=== PATIENT | female | born 1930 | race Caucasian/White ===

== ENCOUNTER 2016-09-22 09:31 | Inpatient (IN) | payer OTHER ==
[2016-09-10 12:44] LABS: BASOPHILS 0.2 %; BASOPHILS ABSOLUTE 0.01 10/3/uL (0.0-0.16); EOSINOPHILS 0.3 %; EOSINOPHILS ABSOLUTE 0.02 10/3/uL (0.0-0.53); HEMATOCRIT 37.6 % (36.0-48.0); IMMATURE GRANULOCYTES 0.3 %; IMMATURE GRANULOCYTES ABSOLUTE 0.02 10/3/uL (0.0-0.11); LYMPHOCYTES 18.5 %; LYMPHOCYTES ABSOLUTE 1.17 10/3/uL (0.67-4.30); MEAN CORPUS HGB CONC 34.6 g/dL (32.0-36.0); MEAN CORPUSCULAR HEMOGLOB 31.9 pg (26.0-34.0); MEAN CORPUSCULAR VOLUME 92.2 fL (80-100); MEAN PLATELET VOLUME 8.4 fL (9.2-13.0); MONOCYTES 8.4 %; MONOCYTES ABSOLUTE 0.53 10/3/uL (0.21-1.20); NEUTROPHILS 72.3 %; NEUTROPHILS ABSOLUTE 4.56 10/3/uL (2.02-8.40); PLATELET COUNT 283 10/3/uL (150-400); RBC DISTRIBUTION WIDTH 13.2 % (12.0-16.0); RED CELL COUNT 4.08 10/6/uL (4.0-5.6)
[2016-09-10 12:45] LABS: MANUAL DIFF NO %; WHITE BLOOD CELLS 6.3 10/3/uL (4.5-10.5)
[2016-09-10 12:47] LABS: INTERNATIONAL NORMAL RATI 1.6 UNITS (-); PARTIAL THROMBO TIME 30.6 SEC (22.5-37.2)
[2016-09-10 12:49] LABS: PROTIME (NOT ORD) 18.6 SEC (12.0-14.5)
[2016-09-10 13:01] LABS: ALBUMIN 3.5 G/DL (3.5-5.0); ALKALINE PHOSPHATASE 93 U/L (45-117); BUN (BLOOD UREA NITROGEN) 18 MG/DL (6-23); CALCIUM, SERUM 9.8 MG/DL (8.5-10.4); CHLORIDE, SERUM 95 MMOL/L (96-112); CO2 (CARBON DIOXIDE) 30 MMOL/L (24-34); CREATININE 0.78 MG/DL (0.55-1.02); GFR AFRICAN AMERICAN 81 ML/MIN (>=60); GFR NON AFRICAN AMERICAN 70 ML/MIN (>=60); GLOBULIN 3.5 G/DL (2.5-4.1); GLUCOSE, SERUM 114 MG/DL (60-99); POTASSIUM, SERUM 3.1 MMOL/L (3.5-5.3); SGOT(AST) 17 U/L (5-40); SGPT(ALT) 17 U/L (5-65); SODIUM, SERUM 137 MMOL/L (135-148)
[2016-09-10 13:02] LABS: ASCORBIC ACID (UR NOT ORDER) NEG (NEG); BILIRUBIN, URINE NEGATIVE (NEG); KETONE, URINE NEGATIVE (NEG); LEUKOCYTE ESTERASE(NOT OR MOD (NEG); WBC (NOT ORDERED) (RFLEX) 85 (0-5)
--- NOTE | ~2016-09-22 | CN ---
Consultation Report [facility] [address] [place]. [address] NAME: STEPHEN YODER : 32 STATUS : ADM IN PAT#: [id number] AGE: 86 ADM/REG DATE : 09/22/16 MR#: [id number] REPORT SERV DATE: 09/23/16 DICTATED BY: BRIAN WILLIAM DATE: 09/23/16 REPORT STATUS : Draft TRANSCRIBED BY: MODL DATE: 09/23/16 CONSULTATION DATE OF CONSULTATION: 09/23/2016 Reason for patient being admitted to the hospital is for left hip total hip arthroplasty for advanced osteoarthritis and degenerative left hip. REASON FOR CONSULT: Medical management in this patient. The patient was examined at bedside and when I examined the patient to get history and do the physical on the patient, she was already up from the bed and sitting on her rocking chair. At this time, the patient denies any symptoms whatsoever, other than the fact that she is unable to urinate and they have had to catheterize her. She also is concerned that she has not had a bowel movement for two days. Other than that, she feels well and she states that the pain in the left hip is bearable. She denies any headaches, blurry vision, trouble swallowing, chest pain, shortness of breath, cough, fever, nausea, vomiting, abdominal pain, diarrhea, dysuria, hematuria. As mentioned above, the patient does have a problem with urinating postoperatively. The patient has been started on IV fluids and is on IV normal saline at 150 mL an hour per orthopedic surgeon, Dr. Soares. REVIEW OF SYSTEMS: As above. 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 1. Neuropathy in feet, for which she takes Neurontin. 2. History of DVT in the left leg and a history of PE more than thirty years ago according to the sons. 3. History of breast cancer that was treated about thirty years ago. 4. First-degree heart block. 5. Bundle-branch block of the heart. At this time with no history of metallic heart valve or cardiac arrhythmia, I am not sure why the patient has been placed on Coumadin in the last just five years. It could be because of the fact that the patient has had DVT and PE more than three decades ago and the patient had a CVA about five years ago that she has been on Coumadin, but the Coumadin is managed by her primary care physician at this time. PAST SURGICAL HISTORY: As above. SOCIAL HISTORY: The patient does not smoke or drink or do any drugs. At this time, the Consultation Report [facility] [id number] [place]. [address] NAME: STEPHEN YODER : 32 STATUS : ADM IN PAT#: [id number] AGE: 86 ADM/REG DATE : 09/22/16 MR#: [id number] REPORT SERV DATE: 09/23/16 DICTATED BY: BRIAN WILLIAM DATE: 09/23/16 REPORT STATUS : Draft TRANSCRIBED BY: SUE DATE: 09/23/16 patient lives alone in her house. Her daughters live close by. Her sons are in the room with the patient, but they do not live in town. FAMILY HISTORY: Positive for breast cancer in family. ALLERGIES: INCLUDE THE FOLLOWING. THE PATIENT IS ALLERGIC TO PENICILLIN. THE PATIENT IS ALSO ALLERGIC TO OXYCODONE. HOME MEDICATIONS: Cardizem CD 120 mg p.o. daily, Zocor 40 mg p.o. daily, Tenormin 50 mg p.o. at bedtime, Neurontin 300 mg p.o. daily, HCTZ 25 mg p.o. daily, losartan 100 mg p.o. daily, MiraLAX powder, and Jantoven 2 mg daily for two days, and then third day as prescribed by PCP according to the patient. PHYSICAL EXAMINATION: GENERAL: The patient is alert, oriented, is able to give her history herself and appears quite comfortable, sitting on the rocking chair. Her skin and mucous membranes appear moist now. VITAL SIGNS: Show that her blood pressure has come back up and is 89/54, oxygen saturation is 93% on room air. The patient has a temperature of 99.3, pulse is 69 per minute. NECK: There is no JVD or thyromegaly. HEENT: There is no facial droop. CARDIOVASCULAR SYSTEM: S1, S2 appreciated. Sinus rhythm. There is a murmur noted and it is systolic murmur that is noted in almost all areas of the precordium. Rhythm, however, is regular. RESPIRATORY SYSTEM: Clear lungs. No rales or rhonchi noted. ABDOMEN: Soft, nontender. Bowel sounds are appreciated. No masses. No hepatosplenomegaly noted. EXTREMITIES: There is no pedal edema in both lower extremities. NEUROLOGICAL: No deficits. PSYCHIATRIC: Normal affect. 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 LABORATORIES: Her labs as of today show sodium of 134, potassium of 3, chloride of 96, BUN 13, creatinine 0.7. WBC count of 6.3, hemoglobin 9.8, hematocrit of 28. INR is 1.3. ASSESSMENT: My assessment in this patient is hypertension is fairly controlled. Continue current medications. However, we will hold one of the medications, probably atenolol if her systolic blood pressure drops down to less than 90. At this time, we will continue diltiazem CD 120 mg p.o. at bedtime, losartan 100 mg p.o. daily, HCTZ 25 mg p.o. daily. We will continue simvastatin 40 mg p.o. at bedtime, multivitamins, and minerals, polyethylene glycol, gabapentin 300 mg once a day, iron tablets for supplementation, famotidine. We will leave anticoagulation up to orthopedic surgeon. We will replace potassium per electrolyte protocol and follow this patient with you. I appreciate the Consultation Report [address] [place]. [address] NAME: STEPHEN YODER : 32 STATUS : ADM IN [facility]#: [id number] AGE: 86 ADM/REG DATE : 09/22/16 MR#: [id number] REPORT SERV DATE: 09/23/16 DICTATED BY: BRIAN WILLIAM DATE: 09/23/16 REPORT STATUS : Draft TRANSCRIBED BY: MODL DATE: 09/23/16 consult. We will follow the patient. OBDULIO/SUE Brina William M.D. / [id number] CC: Federico Soares M.D.
--- NOTE | ~2016-09-22 | DS ---
Discharge Summary [facility] [address] [place]. [address] NAME: STEPHEN YODER : 32 STATUS : DIS IN PAT#: [id number] AGE: 86 ADM/REG DATE : 09/22/16 MR#: [id number] REPORT SERV DATE: 11/04/16 DICTATED BY: TIEN SOARES DATE: 11/03/16 REPORT STATUS : Draft TRANSCRIBED BY: SUE DATE: 11/03/16 Data Collection from hospitalization DISCHARGE DIAGNOSES: 1. Hip arthritis with femoral head collapse. 2. Hypertension. 3. History of breast cancer. 4. Hypercholesterolemia. 5. History of stroke. 6. Peripheral neuropathy. CONSULTATIONS: Patricia Davison M.D. PROCEDURES PERFORMED: Left hip arthroplasty on 09/22/2016. PATHOLOGY: ( ). MEDICATIONS: Cardizem CD 120 mg at bedtime, Colace 100 mg twice a day, Pepcid 20 mg at bedtime, ferrous sulfate 300 mg with breakfast and supper, Neurontin 300 mg at bedtime, Cozaar 100 mg at bedtime, Theragran tablets one tablet with breakfast, MiraLAX powder one packet at bedtime, Zocor 40 mg daily, Coumadin as instructed, Tenormin 50 mg at bedtime, hydrochlorothiazide 25 mg at bedtime, and Lortab 10/325 one tablet every four hours as needed for pain. CONDITION AT DISCHARGE: Stable. DISPOSITION: The patient was discharged to [facility] on a regular diet with activities as instructed. HOSPITAL COURSE: This is an 86-year-old female who was found to have left hip arthritis with a femoral head collapse. Treatment options were discussed and it was elected to proceed with surgical intervention. She was admitted to the hospital at this time for further evaluation and treatment. Upon admission, she was taken to the operating room where she underwent the above-mentioned procedure. She tolerated this well, and there were no complications. On postop day #1, she had no complaints. She was doing well postoperatively. She was evaluated by Physical Therapy. She was seen in consultation by Dr. Patricia Davison regarding medical management. The patient was concerned that she has not had a bowel movement in two days. The patient was up from the bed, sitting in a chair. She said that she was unable to urinate and she had to be catheterized. She felt like her left hip pain was bearable. Simvastatin was continued as well as multivitamins and minerals, polyethylene glycol, and gabapentin. Iron tablets would be given for supplementation. Famotidine would be provided. Potassium supplementation would be given as well. Diltiazem CD was continued as well as hydrochlorothiazide. Blood pressure was fairly well controlled. INR level was 1.3. On postop day #2, blood pressure was under better control after stopping atenolol. Hydrochlorothiazide was discontinued. She did have some hyponatremia. IV normal saline was started. JOSE hose remained in place. Discharge planning was performed. On 09/25/2016, she continued to progress. She was alert Discharge Summary [address] [place]. [address] NAME: STEPHEN YDOER : 32 STATUS : DIS IN PAT#: [id number] AGE: 86 ADM/REG DATE : 09/22/16 MR#: [id number] REPORT SERV DATE: 11/04/16 DICTATED BY: TIEN SOARES DATE: 11/03/16 REPORT STATUS : Draft TRANSCRIBED BY: SUE DATE: 11/03/16 and cooperative. Discharge instructions were given. Due to her improved and stable condition, she was discharged to [facility] with the above-stated instructions. Information collected by: Altagracia Yoon I submit the above information as my discharge summary. TATA/SUE Tien Soares M.D. / [id number] CC: iTen Soares M.D. [facility] Jagdeep Quezada M.D.
--- NOTE | ~2016-09-22 | OP ---
Record Of Operation [facility] [address] [place]. [address] NAME: STEPHEN YODER : 32 STATUS : ADM IN PAT#: [id number] AGE: 86 ADM/REG DATE : 09/22/16 MR#: [id number] REPORT SERV DATE: 09/22/16 DICTATED BY: TIEN SOARES DATE: 09/22/16 REPORT STATUS : Draft TRANSCRIBED BY: MODL DATE: 09/22/16 DATE OF PROCEDURE: 09/22/2016 POSTOPERATIVE DIAGNOSIS: Left hip arthritis with femoral head collapse. POSTOPERATIVE DIAGNOSIS: Left hip arthritis with femoral head collapse. PROCEDURE PERFORMED: Left total hip arthroplasty. SURGEON: Tien Soares M.D. AGING ROOM HAND: Ignacio Stuart. ANESTHESIA: Spinal with sedation and local infusion. PROCEDURE IN DETAIL: The patient is clearly identified and after obtaining informed consent is brought to the operating room at [facility] where here the patient is induced under general anesthesia and subsequently placed in the left lateral decubitus position. This concluded, the thigh and flank are prepped and draped in the usual manner. A time-out procedure successfully performed and after registering the knee and marking the anatomy through an approximately 4.5 incision, the skin is divided. The fascial planes are divided. The lateral fascia then is divided. Hemostasis is obtained with electrocautery and a Charnley retractor is applied. The piriformis is identified, tagged, divided, and retracted over the sciatic nerve felt deep in the wound. At which point, the mini approach to the hip is formed with dividing the capsule in a mini approach with a cuff of tissues remaining at the femoral side to accomplish repair at the conclusion of the case. Dislocating the hip, end-stage arthritic changes are noted. The tissue surrounding the femoral neck are protected with the Hohmann retractor and the femoral neck cut is made according to preoperative templating. This concluded, the femoral head is removed. The acetabulum is exposed. The labral and fluvial tissues are removed and reaming is performed. Subsequently trialing with the appropriate trial, the permanent acetabular components placed with the [facility]. At which point, the acetabular trial component is then placed. The proximal femur is then addressed. The structures posteromedial to the greater trochanter are removed and this concluded the galindo-claire canal finder lateralizer and reaming is performed. This concluded, broaching is performed and with excellent fit-fill and stability for the implant trialing is performed finding excellent leg length, stability, no impingement, good kickback, no push-pull, and the lesser trochanter palpably at the appropriate distance from the ischium when compared to preoperative templating. The trials were felt to be appropriate. These are all then removed and the permanent implants are then carefully applied uneventfully. Copious irrigation is then performed with same stability and findings noted after insertion. At which point, the joint then is carefully closed in layers including capsule, piriformis, lateral fascia, deep tissues, and skin. Aquacel dressing is applied and the patient is then allowed to awaken, is placed supine and is returned to the recovery room in stable condition having tolerated the procedure well. ESTIMATED BLOOD LOSS: 100. Record Of Operation [facility] [id number] [facility] [place]. [address] NAME: STEPHEN YODER : 32 STATUS : ADM IN PAT#: [id number] AGE: 86 ADM/REG DATE : 09/22/16 MR#: [id number] REPORT SERV DATE: 09/22/16 DICTATED BY: TIEN SOARES DATE: 09/22/16 REPORT STATUS : Draft TRANSCRIBED BY: MODL DATE: 09/22/16 FLUIDS: 1100. TOURNIQUET TIME: None. PATHOLOGY: Sent specimen. MICROBIOLOGY: None. COMPLICATIONS: None. SPONGE AND NEEDLE COUNTS: Reportedly correct. ANTIBIOTICS: Administered appropriately preoperatively and ordered to be discontinued within 23 hours. IMPLANTS: DePuy Hip System; femur 4 high-offset +5/36 metal head acetabulum, 52 with +4 neutral liner, and no screws. MYNOR/SUE Tien Soares M.D. / [id number] CC: Tien Soares M.D.
[~2016-09-22 09:31] MED LIST: ATEN50 PO; BENICAR HCT1 TA1 PO; CARDCD120 PO; COZAAR100 MG PO; FOSAMAX35 MG PO; HYDROCHLOROT25 MG PO; JANTOVEN2 MG PO; MIRALAX POWDER1 PKT PO; MIRALAXPKT PO; NEUR100 PO; ZOCOR40 PO
[2016-09-22 10:08] LABS: INTERNATIONAL NORMAL RATI 1.2 UNITS (-)
[2016-09-22 10:09] LABS: PROTIME (NOT ORD) 15.2 SEC (12.0-14.5)
[2016-09-23 05:25] LABS: HEMOGLOBIN 9.8 g/dL (12.0-16.0)
[2016-09-23 05:28] LABS: INTERNATIONAL NORMAL RATI 1.3 UNITS (-); PROTIME (NOT ORD) 16.2 SEC (12.0-14.5)
[2016-09-23 05:33] LABS: CHLORIDE, SERUM 96 MMOL/L (96-112); CO2 (CARBON DIOXIDE) 30 MMOL/L (24-34); CREATININE 0.78 MG/DL (0.55-1.02); GFR AFRICAN AMERICAN 81 ML/MIN (>=60); GFR NON AFRICAN AMERICAN 70 ML/MIN (>=60); GLUCOSE, SERUM 115 MG/DL (60-99); SODIUM, SERUM 134 MMOL/L (135-148)
[2016-09-23 05:39] LABS: BUN (BLOOD UREA NITROGEN) 13 MG/DL (6-23)
[2016-09-24 05:48] LABS: BASOPHILS 0.3 %; BASOPHILS ABSOLUTE 0.02 10/3/uL (0.0-0.16); EOSINOPHILS 2.8 %; EOSINOPHILS ABSOLUTE 0.17 10/3/uL (0.0-0.53); HEMATOCRIT 26.1 % (36.0-48.0); HEMOGLOBIN 9.4 g/dL (12.0-16.0); IMMATURE GRANULOCYTES 0.2 %; IMMATURE GRANULOCYTES ABSOLUTE 0.01 10/3/uL (0.0-0.11); LYMPHOCYTES ABSOLUTE 1.42 10/3/uL (0.67-4.30); MEAN CORPUSCULAR HEMOGLOB 31.3 pg (26.0-34.0); MEAN PLATELET VOLUME 8.4 fL (9.2-13.0); MONOCYTES 7.4 %; MONOCYTES ABSOLUTE 0.46 10/3/uL (0.21-1.20); NEUTROPHILS 66.3 %; RBC DISTRIBUTION WIDTH 12.8 % (12.0-16.0); WHITE BLOOD CELLS 6.2 10/3/uL (4.5-10.5)
[2016-09-24 06:13] LABS: INTERNATIONAL NORMAL RATI 1.8 UNITS (-); MANUAL DIFF NO %; PLATELET COUNT 184 10/3/uL (150-400)
[2016-09-24 06:14] LABS: BUN (BLOOD UREA NITROGEN) 14 MG/DL (6-23); CALCIUM, SERUM 7.6 MG/DL (8.5-10.4); CHLORIDE, SERUM 93 MMOL/L (96-112); CO2 (CARBON DIOXIDE) 28 MMOL/L (24-34); CREATININE 1.03 MG/DL (0.55-1.02); GFR AFRICAN AMERICAN 58 ML/MIN (>=60); GFR NON AFRICAN AMERICAN 50 ML/MIN (>=60); SODIUM, SERUM 129 MMOL/L (135-148)
[2016-09-24 06:19] LABS: GLUCOSE, SERUM 90 MG/DL (60-99); POTASSIUM, SERUM 2.6 MMOL/L (3.5-5.3)
[2016-09-24 06:55] LABS: PROTIME (NOT ORD) 20.4 SEC (12.0-14.5)
[2016-09-24 11:46] LABS: A/G RATIO 0.7 (0.7-1.9); ALKALINE PHOSPHATASE 77 U/L (45-117); BUN (BLOOD UREA NITROGEN) 15 MG/DL (6-23); CALCIUM, SERUM 7.7 MG/DL (8.5-10.4); CHLORIDE, SERUM 91 MMOL/L (96-112); CO2 (CARBON DIOXIDE) 27 MMOL/L (24-34); CREATININE 1.14 MG/DL (0.55-1.02); GFR AFRICAN AMERICAN 51 ML/MIN (>=60); GFR NON AFRICAN AMERICAN 44 ML/MIN (>=60); GLOBULIN 2.8 G/DL (2.5-4.1); GLUCOSE, SERUM 109 MG/DL (60-99); POTASSIUM, SERUM 3.5 MMOL/L (3.5-5.3); SGOT(AST) 20 U/L (5-40); SGPT(ALT) 14 U/L (5-65); SODIUM, SERUM 128 MMOL/L (135-148); TOTAL BILIRUBIN 0.8 MG/DL (0-1.2); TOTAL PROTEIN 4.8 G/DL (6.0-8.5)
[2016-09-25 06:23] LABS: BASOPHILS 0.2 %; BASOPHILS ABSOLUTE 0.01 10/3/uL (0.0-0.16); EOSINOPHILS 2.6 %; EOSINOPHILS ABSOLUTE 0.14 10/3/uL (0.0-0.53); HEMOGLOBIN 9.1 g/dL (12.0-16.0); IMMATURE GRANULOCYTES 0.2 %; IMMATURE GRANULOCYTES ABSOLUTE 0.01 10/3/uL (0.0-0.11); LYMPHOCYTES 22.6 %; LYMPHOCYTES ABSOLUTE 1.21 10/3/uL (0.67-4.30); MANUAL DIFF NO %; MEAN CORPUSCULAR HEMOGLOB 31.5 pg (26.0-34.0); MEAN PLATELET VOLUME 8.2 fL (9.2-13.0); MONOCYTES 11.6 %; MONOCYTES ABSOLUTE 0.62 10/3/uL (0.21-1.20); NEUTROPHILS 62.8 %; NEUTROPHILS ABSOLUTE 3.36 10/3/uL (2.02-8.40); PLATELET COUNT 186 10/3/uL (150-400); RBC DISTRIBUTION WIDTH 12.6 % (12.0-16.0); RED CELL COUNT 2.89 10/6/uL (4.0-5.6); WHITE BLOOD CELLS 5.4 10/3/uL (4.5-10.5)
[2016-09-25 06:29] LABS: BUN (BLOOD UREA NITROGEN) 15 MG/DL (6-23); CALCIUM, SERUM 7.7 MG/DL (8.5-10.4); CHLORIDE, SERUM 98 MMOL/L (96-112); CO2 (CARBON DIOXIDE) 30 MMOL/L (24-34); CREATININE 1.12 MG/DL (0.55-1.02); GFR AFRICAN AMERICAN 52 ML/MIN (>=60); GFR NON AFRICAN AMERICAN 45 ML/MIN (>=60); GLUCOSE, SERUM 105 MG/DL (60-99); POTASSIUM, SERUM 3.3 MMOL/L (3.5-5.3); SODIUM, SERUM 134 MMOL/L (135-148)
[2016-09-25 06:55] LABS: INTERNATIONAL NORMAL RATI 1.7 UNITS (-); PROTIME (NOT ORD) 19.8 SEC (12.0-14.5)
== END 2016-09-25 17:17 | DRG 470 ==
LOC: SDC/OF 09:31 → PACU 13:48 → 1SO 17:08
PROVIDERS: Orthopaedic Surgery
PROC: 0SRB01Z Replacement of Left Hip Joint with Metal Synthetic Substitute, Open Approach (ICD-10-PCS; principal; 2016-09-22 10:30)
DX: M16.12 Unilateral primary osteoarthritis, left hip (principal); G62.9 Polyneuropathy, unspecified; Z86.718 Personal history of other venous thrombosis and embolism; Z85.3 Personal history of malignant neoplasm of breast; Z86.711 Personal history of pulmonary embolism; Z88.0 Allergy status to penicillin; Z88.5 Allergy status to narcotic agent; Z79.899 Other long term (current) drug therapy
CPT/HCPCS: 36415; 71020; 72170; 80048; 80053; 81001; 85014; 85018; 85025; 85610; 85730; 86850; 86900; 86901; 87077; 87086; 87186; 87641; 88304; 88311; 93005; 97110-GP; 97116-GP; 97161-GP; 97166-GO; 97535-GO; A9270-GY; C1776; J1170; J1580; J1885; J2274; J2405; J2710; J2795; J3010; J3370